=== PATIENT | male | born 1970 | race Asian ===

== ENCOUNTER 2023-02-11 21:38 | Emergency (ER) | payer MEDICARE ==
[~2023-02-11] VITALS: Ht 180.3 cm; Wt 122.5 kg
[2023-02-11 21:47] VITALS: BP 132/94
== END 2023-02-11 23:54 | disposition home or self-care (01) ==
LOC: ER 21:38
DX: M79.641 Pain in right hand (principal); M79.644 Pain in right finger(s)
CPT/HCPCS: 29125; 73130; 99283-25

== ENCOUNTER 2023-07-09 19:15 | Emergency (ER) | payer OTHER, MEDICARE ==
[~2023-07-09] VITALS: Ht 180.3 cm; Wt 136.1 kg
[2023-07-09 19:28] VITALS: BP 180/100
[2023-07-09] MEDS ORDERED: CLONAZEPAM2 MG PO (21:02)
[2023-07-09] MEDS ORDERED: OXYB5 PO (21:03)
[2023-07-09] MEDS ORDERED: AMLODIPINE BESYL5 MG PO (21:08)
== END 2023-07-09 20:58 | disposition home or self-care (01) ==
LOC: ER 19:15
DX: S01.21XA Laceration without foreign body of nose, initial encounter (principal); W01.198A Fall on same level from slipping, tripping and stumbling with subsequent striking against other object, initial encounter; Z72.0 Tobacco use
CPT/HCPCS: 12013; 99282-25

== ENCOUNTER 2024-08-09 20:02 | Emergency (ER) | payer MEDICARE, OTHER ==
[~2024-08-09] VITALS: Ht 167.6 cm; Wt 133.8 kg
[~2024-08-09 20:02] MED LIST: AMLODIPINE BESYL5 MG PO; CLONAZEPAM2 MG PO; OXYB5 PO
[2024-08-09 20:34] LABS: Source, Urine Clean Catch
[2024-08-09 20:37] LABS: Bilirubin, Urine Neg (Neg); Blood, Urine 2+ (Neg); Glucose Qualitative, Urine Neg (Neg); Ketones, Urine Neg (Neg); Leukocyte Esterase, Urine Neg (Neg); Nitrite, Urine Neg (Neg); Protein, Urine 2+ (Neg); Urobilinogen, Urine 3+ (Normal)
[2024-08-09] MEDS ORDERED: NS 1,000 ML IV SCH (20:40)
[2024-08-09 20:43] LABS: Appearance, Urine Clear (Clear); Color, Urine Yellow (P-Yellow)
[2024-08-09 20:44] LABS: Amorphous Light (0-Heavy); Bacteria Rare /hpf; Hyaline Casts 0-2 /lpf (0-2); Mucus Light (0-Heavy); Red Blood Cells, Urine 0-2 /hpf (0-2); Squamous Epithelial Cells Few /hpf (Few); White Blood Cells, Urine 0-2 /hpf (0-5)
[2024-08-09 20:50] LABS: BASOPHILS ABSOLUTE AUTO 0.01 K/mm3 (0.00-0.23); BASOPHILS PERCENT AUTO 0 % (0-2); Base Excess Venous 2.3 mmol/L; Bicarbonate Venous 25.5 mmol/L (24.0-30.0); EOSINOPHILS PERCENT AUTO 0 % (0-6); Hematocrit 42.4 % (37.0-53.0); Hemoglobin 14.7 g/dL (13.5-17.5); IMMATURE GRAN ABSOLUTE AUTO 0.01 K/mm3 (0.00-0.10); IMMATURE GRAN PERCENT AUTO 0 % (0-1); LYMPHOCYTES ABSOLUTE AUTO 0.96 K/mm3 (0.84-5.20); LYMPHOCYTES PERCENT AUTO 23 % (21-46); MONOCYTES ABSOLUTE AUTO 0.39 K/mm3 (0.16-1.47); MONOCYTES PERCENT AUTO 9 % (4-13); Mean Corpuscular HGB 31.1 pg (26.0-34.0); Mean Corpuscular HGB Conc 34.7 g/dL (31.5-36.5); Mean Corpuscular Volume 90 fL (80-100); Mean Platelet Volume 9.1 fL (9.1-12.4); NEUTROPHILS ABSOLUTE AUTO 2.82 K/mm3 (1.96-9.15); NEUTROPHILS PERCENT AUTO 67 % (41-73); PCO2 Venous 47.9 mmHg (38-42); Platelet Count 136 K/mm3 (150-400); RDW Standard Deviation 43.1 fL (35.1-46.3); Red Blood Cell Count 4.73 M/mm3 (4.30-5.90); White Blood Cell Count 4.19 K/mm3 (4.00-11.30); pH Blood Venous 7.37 (7.34-7.37)
[2024-08-09 20:54] LABS: INFLUENZA A AG Positive (NEGATIVE)
[2024-08-09 20:55] LABS: CORONAVIRUS COVID-19 AG Negative (NEGATIVE); INFLUENZA B AG Negative (NEGATIVE)
[2024-08-09 21:13] LABS: Albumin, Blood 3.4 g/dL (3.4-5.0); Albumin/Globulin Ratio 0.7 (0.8-1.8); Bilirubin, Total 0.4 mg/dL (0.1-1.0); Bun/Creatinine Ratio 9.7 (12.0-20.0); Calcium, Blood 7.9 mg/dL (8.5-10.1); Creatinine, Blood 1.13 mg/dL (0.60-1.20); Globulin, Blood 4.6 g/dL (2.2-4.0); Magnesium, Blood 1.9 mg/dL (1.6-2.4); Phosphorus, Blood 1.3 mg/dL (2.5-4.9); Potassium, Blood 3.7 mmol/L (3.5-5.5)
[2024-08-09] MEDS ORDERED: ACET500 PO (21:53)
[2024-08-09] MEDS ORDERED: IBUP600 PO (21:53)
[2024-08-09 22:30] VITALS: BP 144/90
== END 2024-08-09 23:22 | disposition home or self-care (01) ==
LOC: ER 20:02
PROVIDERS: Emergency Medicine
DX: J10.1 Influenza due to other identified influenza virus with other respiratory manifestations (principal); G25.3 Myoclonus; E66.9 Obesity, unspecified; Z68.42 Body mass index [BMI] 45.0-49.9, adult; Z98.890 Other specified postprocedural states; Z79.899 Other long term (current) drug therapy
CPT/HCPCS: 36415; 71045; 80053; 81001; 82803; 83605; 83735; 84100; 84145; 85025; 87040; 87428-QW; 99284-25; J7030